=== PATIENT | male | born 2000 | race Caucasian/White ===

== ENCOUNTER 2023-12-30 12:45 | Emergency (ER) | payer BC, SELFPAY ==
[2023-12-30 13:15] VITALS: BP 123/84; PULSE 77; RESP 18; TEMP 36.6; O2SAT 99; BMI 31.9
--- NOTE | 2023-12-30 13:26 | EXP.UTC ---
Discharge Plan Disposition Patient Disposition: Home, Self-Care Condition: Good Prescriptions Prescriptions: New escitalopram oxalate 5 mg tablet 5 mg PO DAILY 30 Days Qty: 30 0RF No Action escitalopram oxalate [Lexapro] 5 mg Tablet 5 mg PO DAILY Referrals Follow up/Referrals: Provider,Referral, MD [Primary Care Provider] - See instructions Activity Restrictions/Add. Instructions Additional Instructions/Restrictions: You was given phone numbers to establish care Call the office and make appointment Return if needed Clinical Impressions Clinical Impression: Encounter for medication refill Instructions Patient Instructions: Escitalopram Print Language Print Language: [place] Discharge ED Provider: Dot Ruiz Trina [facility] HPI General Stated complaint: medicine refill Mode of Arrival: Ambulatory Source of Information: Patient Limitations: No Limitations Time Seen by Provider: 12/30/23 13:26 Description of Symptoms (Recalled from Triage Doc. by RN): PATIENT REQUESTING A REFILL FOR HIS LEXAPRO. HE STATES HE RECENTLY MOVED HERE AND HAS NOT YET ESTABLISHED CARE WITH PCP HEENT Symptoms (Recalled from RN notes): No Resp Symptoms (Recalled from RN notes): No Skin Symptoms (Recalled from RN notes): No MS Symptoms (Recalled from RN notes): No Functional Status (Recalled from RN notes): WNL History of Present Illness Provider Complaint: Patient states that he has not established care yet after moving here just a little while ago from [facility] he wanted to see if he could get a refill on his escitalopram until he can establish care somewhere Related Data Home Medications ?Medication ?Instructions ?Recorded ?Confirmed escitalopram oxalate 5 mg tablet 5 mg PO DAILY 12/30/23 12/30/23 (Lexapro) Previous Rx's ?Medication ?Instructions ?Recorded escitalopram oxalate 5 mg tablet 5 mg PO DAILY 30 days #30 tabs 12/30/23 Allergies Allergy/AdvReac Type Severity Reaction Status Date / Time No Known Allergies Allergy Verified 12/30/23 13:25 Worker's Comp Is this a Worker's Comp case?: No [facility] Disclaimer: The information contained in this section may have been updated after the patient was seen, as this information can be updated by other users. Medical History (Updated 12/30/23 @ 13:31 by Dot Ruiz APRN) Depression Anxiety Social History Smoking Status: Unknown if ever smoked alcohol intake: never current occupational status: employed Travel in the last 8 weeks: None ROS Obtained: Yes All systems reviewed & no additional complaints except as documented and Yes Systems reviewed as appropriate & no additional complaints except as documented Constitutional Constitutional: Reports system reviewed and no additional complaints, except as documented and Reports as per HPI ENT Ears, Nose, Mouth, and Throat: Reports system reviewed and no additional complaints, except as documented and Reports as per HPI Cardiovascular Cardiovascular: Reports system reviewed and no additional complaints, except as documented and Reports as per HPI Respiratory Respiratory: Reports system reviewed and no additional complaints, except as documented and Reports as per HPI Gastrointestinal Gastrointestingal: Reports system reviewed and no additional complaints, except as documented and as per HPI Genitourinary Male Genitourinary: Reports system reviewed and no additional complaints, except as documented and Reports as per HPI Physical Exam General General appearance: alert and in no apparent distress ENT ENT exam: Present mucous membranes moist Neck Neck exam: Present normal inspection, full ROM and trachea midline Chest Chest inspection: Present normal inspection and symmetric chest wall rise Respiratory Respiratory exam: Present normal lung sounds bilaterally; Absent respiratory distress or wheezes Cardiovascular Cardiovascular exam: Present regular rate, normal rhythm and normal heart sounds Neurological Exam Neurological exam: Present alert, oriented X3 and normal gait Medical Decision Making Medical Records Screening: Per USPSTF and CDC recommendations, given the prevalence of disease in our region, it is our hospital?s policy to screen for HIV and viral Hepatitis for all patients aged 18 and over and those with ongoing risk factors. Nathan Inquiry Pt receiving controlled substance: No Nathan was queried for this patient: No Vital Signs: 12/30/23 13:15 Temperature 97.8 F Temperature Source Oral Pulse Rate [Left Brachial] 77 Respiratory Rate 18 Blood Pressure [Left Arm] 170/100 H Blood Pressure Mean [Left Arm] 123 Blood Pressure Source [Left Arm] Automatic Cuff Blood Pressure Position [Left Arm] Sitting 02 Sat by Pulse Oximetry 99 Oxygen Delivery Method Room Air
[2023-12-30 13:30] VITALS: BP 123/84; PULSE 77; RESP 18; TEMP 36.6; O2SAT 99
== END 2023-12-30 13:35 | disposition home or self-care (01) ==
PROVIDERS: Emergency Provider Nurse Practitioner
DX: Z76.0 Encounter for issue of repeat prescription (principal)
CPT/HCPCS: 99213; G0381

== ENCOUNTER 2025-02-08 06:04 | Emergency (ER) | payer BC, SELFPAY ==
[2025-02-08] VITALS (14 sets, daily range): BP systolic 112–159; BP diastolic 61–100; PULSE 79–136; RESP 11–18; TEMP 36.8–37.1; O2SAT 91–98; BMI 34.2
--- NOTE | 2025-02-08 06:01 | ECG_ITS ---
APPROVED REPORT Exam: Resting ECG HR:149 bpm ECG Measurements Heart Rate 149 AXES HI 134 P 60 QRSd 85 QRS 38 QT 256 T 54 QTc 341 Conclusion SINUS TACHYCARDIA, POSSIBLE ATRIAL FLUTTER POSSIBLE RIGHT VENTRICULAR CONDUCTION DELAY [RSR (QR) IN V1/V2] ABNORMAL RHYTHM ECG Electronically signed by : SHARMILA BARRIGA, 02/08/2025 13:57:11
--- NOTE | 2025-02-08 06:03 | ED_ITS ---
Discharge Plan Disposition Patient Disposition: Home, Self-Care Prescriptions Prescriptions: No Action escitalopram oxalate 5 mg tablet 5 mg PO DAILY 30 Days Qty: 30 3RF Referrals Follow up/Referrals: Rashi Noonan DO [Primary Care Provider, Family Practice] - See instructions Activity Restrictions/Add. Instructions Additional Instructions/Restrictions: At this time it was felt you are safe to be discharged home. If new or worsening symptoms please do not hesitate to return the emergency department. Please refrain from substance abuse. Clinical Impressions Clinical Impression: Acute alteration in mental status, Acute substance intoxication Instructions Patient Instructions: Subjective Opioid Withdrawal Scale (SOWS) Print Language Print Language: Upper Sorbian Discharge ED Provider: Regan Caro General Adult HPI <Khris Medrano MD - Last Filed: 02/08/25 07:02> General Chief complaint: Overdose Stated complaint: OD Time Seen by Provider: 02/08/25 06:16 History of Present Illness HPI narrative: 24-year-old male without significant past medical history presents for THC overdose. History obtained from parents and EMS. Parents report that he had a couple of beers around 9 PM and they went to sleep. They awoke this morning to hear him puking in the bathroom. He was very altered and confused and not acting normally. No obvious signs of trauma. They did not witness him fall. EMS brought an empty 400 mg packet of delta 9 THC. Unclear how much of the packet he took, possibly the whole thing though it is unclear. Related Data Previous Rx's ?Medication ?Instructions ?Recorded escitalopram oxalate 5 mg tablet 5 mg PO DAILY 30 days #30 tabs 11/20/24 Allergies Allergy/AdvReac Type Severity Reaction Status Date / Time No Known Allergies Allergy Verified 11/20/24 08:34 PFS <Khris Medrano MD - Last Filed: 02/08/25 07:02> [facility] Disclaimer: The information contained in this section may have been updated after the patient was seen, as this information can be updated by other users. Medical History Bone spur right knee Depression Anxiety Surgical History [place] teeth extracted H/O right knee surgery bone spur removal Social History Smoking Status: Unknown if ever smoked alcohol intake: current alcohol intake frequency: a few times a week substance use type: denies use current occupational status: employed Travel in the last 8 weeks?: None <Khris Medrano MD - Last Filed: 02/08/25 07:02> ROS Obtained: Yes All systems reviewed & no additional complaints except as documented Physical Exam <Khris Medrano MD - Last Filed: 02/08/25 07:02> General General appearance: appears intoxicated Head Head exam: atraumatic and normocephalic Eye Eye exam: Present normal appearance, PERRL and EOMI ENT ENT exam: Present normal oropharynx and normal external ear exam Neck Neck exam: Present normal inspection and full ROM Chest Chest inspection: Present normal inspection and symmetric chest wall rise; Absent tenderness Respiratory Respiratory exam: Present normal lung sounds bilaterally; Absent respiratory distress Cardiovascular Cardiovascular exam: Present normal rhythm and tachycardia Abdominal Exam Abdominal exam: Present soft; Absent distention, tenderness or guarding Extremities Exam Extremities exam: Present normal inspection; Absent edema or joint swelling Back Exam Back exam: Present normal inspection; Absent tenderness Neurological Exam Neurological exam: Present other (Pupils dilated. GCS 11. Will answer some questions but is confused. Localizes in all extremities) Psychiatric Psychiatric exam: Present normal affect and normal mood Skin Skin exam: Present warm, dry and normal color Lymphatic Lymphatic Findings: no adenopathy Medical Decision Making <Khris Medrano MD - Last Filed: 02/08/25 07:02> Medical Records Medical records reviewed: Yes I reviewed the patient's medical records. Screening: Per USPSTF and CDC recommendations, given the prevalence of disease in our region, it is our hospital?s policy to screen for HIV and viral Hepatitis for all patients aged 18 and over and those with ongoing risk factors. Nathan Inquiry Pt receiving controlled substance: No Nathan was queried for this patient: No Vital Signs: 02/08/25 06:02 02/08/25 06:12 02/08/25 06:31 Temperature 98.7 F 98.2 F Temperature Source Oral Oral Pulse Rate 136 H 134 H Pulse Rate [Left] 133 H Respiratory Rate 18 12 Blood Pressure 159/78 H 156/96 H Blood Pressure [Right Arm] 157/100 H Blood Pressure Mean 116 Blood Pressure Mean [Right Arm] 119 Blood Pressure Source [Right Arm] Automatic Cuff Blood Pressure Position [Right Arm] Sitting 02 Sat by Pulse Oximetry 96 98 95 Oxygen Delivery Method Room Air Room Air 02/08/25 07:01 02/08/25 07:51 02/08/25 08:00 Temperature Temperature Source Pulse Rate 129 H 113 H 113 H Pulse Rate [Left] Respiratory Rate 17 17 Blood Pressure 146/79 H 142/79 H 128/69 Blood Pressure [Right Arm] Blood Pressure Mean Blood Pressure Mean [Right Arm] Blood Pressure Source [Right Arm] Blood Pressure Position [Right Arm] 02 Sat by Pulse Oximetry 91 L 95 94 L Oxygen Delivery Method Room Air Room Air Room Air 02/08/25 08:15 02/08/25 08:30 02/08/25 09:00 Temperature Temperature Source Pulse Rate 107 H 104 H 100 H Pulse Rate [Left] Respiratory Rate 14 15 17 Blood Pressure 135/64 135/75 Blood Pressure [Right Arm] Blood Pressure Mean Blood Pressure Mean [Right Arm] Blood Pressure Source [Right Arm] Blood Pressure Position [Right Arm] 02 Sat by Pulse Oximetry 94 L 95 97 Oxygen Delivery Method Room Air Room Air Room Air 02/08/25 09:30 Temperature Temperature Source Pulse Rate 94 H Pulse Rate [Left] Respiratory Rate 13 Blood Pressure 121/64 Blood Pressure [Right Arm] Blood Pressure Mean Blood Pressure Mean [Right Arm] Blood Pressure Source [Right Arm] Blood Pressure Position [Right Arm] 02 Sat by Pulse Oximetry 95 Oxygen Delivery Method Room Air Lab Data Lab results reviewed: Yes I reviewed the patient's lab results. Lab Results 02/08/25 05:55: WBC 9.3, RBC 5.26, Hgb 17.2, Hct 48.6, MCV 92.4, MCH 32.7 H, MCHC 35.4, RDW 12.4, Plt Count 469 H, MPV 10.0, Neut % (Auto) 65.5, Lymph % (Auto) 25.2, Cassia % (Auto) 8.1, Eos % (Auto) 0.6, Baso % (Auto) 0.4, Neut # (Auto) 6.1, Lymph # (Auto) 2.3, Cassia # (Auto) 0.8, Eos # (Auto) 0.1, Baso # (Auto) 0.0, Sodium 139, Potassium 4.6, Chloride 101, Carbon Dioxide 23, Anion Gap 19.6 H, BUN 18, Creatinine 1.40 H, Estimated Creat Clear 115, Estimated GFR 61, Est GFR ( Amer) 74, Glucose 181 H, Calcium 9.3, Total Bilirubin 0.5, AST 43, ALT 65, Alkaline Phosphatase 60, Total Protein 8.6 H, Albumin 5.2 H, G lobulin 3.4 H, Albumin/Globulin Ratio 1.5, Salicylates < 1.0 L, Acetaminophen < 10 L, HCV Ab DA w/Rflx PCR Qn Negative 02/08/25 05:55 02/08/25 05:55 Orders (Tests/Meds): ED MEDICATIONS Discontinued Medications Generic Name Dose Route Start Last Admin Trade Name Freq PRN Reason Stop Dose Admin Sodium Chloride 1,000 mls @ 999 mls/hr 02/08/25 06:00 02/08/25 09:01 Sod Chlor 0.9% 1000ml Bag IV 02/08/25 07:00 Infused .Q1H1M ELO Infusion ORDERS Category Date Time Status CT head/brain wo con Stat Cat Scan 02/08/25 07:21 Completed CXR --portable [XR chest portable] Stat Exams 02/08/25 06:08 Completed Acetaminophen Stat Lab 02/08/25 05:55 Completed CBC w/Auto Diff [Complete Blood Count Auto Diff] Stat Lab 02/08/25 05:55 Completed CMP [Comprehensive Metabolic Panel] Stat Lab 02/08/25 05:55 Completed HIV Combo Stat Lab 02/08/25 05:55 Received Hepatitis C Ab Qual. W/ RFX Stat Lab 02/08/25 05:55 Completed Salicylate Stat Lab 02/08/25 05:55 Completed Medical Decision Narrative: 24-year-old male without significant past medical history presents for intoxication, likely THC overdose. History was obtained via interactive discussion with EMS, chart review, family. On arrival, patient is afebrile, tachycardic but hemodynamically stable, altered with GCS 11, moving all extremities spontaneously. Full physical exam performed and significant for no obvious signs of trauma Differential includes but is not limited to alcohol intoxication, THC intoxication, opiate intoxication,. Patient was given 1 L IV fluid bolus for symptomatic management and correction of underlying abnormalities. Workup initiated including basic labs, chest x-ray. On re-evaluation, patient remains altered, heart rate improving with fluids Laboratory workup independently interpreted by me and significant for creatinine 1.4, unknown baseline, negative Tylenol and salicylate. Imaging independently interpreted by me and significant for clear lungs, no evidence of aspiration. See radiology read for full review of final results. Patient was placed in ED outpatient status for continued monitoring. At this time care handed off to oncoming physician. <Regan Caro MD - Last Filed: 02/08/25 12:08> Vital Signs: 02/08/25 06:02 02/08/25 06:12 02/08/25 06:31 Temperature 98.7 F 98.2 F Temperature Source Oral Oral Pulse Rate 136 H 134 H Pulse Rate [Left] 133 H Respiratory Rate 18 12 Blood Pressure 159/78 H 156/96 H Blood Pressure [Right Arm] 157/100 H Blood Pressure Mean 116 Blood Pressure Mean [Right Arm] 119 Blood Pressure Source [Right Arm] Automatic Cuff Blood Pressure Position [Right Arm] Sitting 02 Sat by Pulse Oximetry 96 98 95 Oxygen Delivery Method Room Air Room Air 02/08/25 07:01 02/08/25 07:51 02/08/25 08:00 Temperature Temperature Source Pulse Rate 129 H 113 H 113 H Pulse Rate [Left] Respiratory Rate 17 17 Blood Pressure 146/79 H 142/79 H 128/69 Blood Pressure [Right Arm] Blood Pressure Mean Blood Pressure Mean [Right Arm] Blood Pressure Source [Right Arm] Blood Pressure Position [Right Arm] 02 Sat by Pulse Oximetry 91 L 95 94 L Oxygen Delivery Method Room Air Room Air Room Air 02/08/25 08:15 02/08/25 08:30 02/08/25 09:00 Temperature Temperature Source Pulse Rate 107 H 104 H 100 H Pulse Rate [Left] Respiratory Rate 14 15 17 Blood Pressure 135/64 135/75 Blood Pressure [Right Arm] Blood Pressure Mean Blood Pressure Mean [Right Arm] Blood Pressure Source [Right Arm] Blood Pressure Position [Right Arm] 02 Sat by Pulse Oximetry 94 L 95 97 Oxygen Delivery Method Room Air Room Air Room Air 02/08/25 09:30 Temperature Temperature Source Pulse Rate 94 H Pulse Rate [Left] Respiratory Rate 13 Blood Pressure 121/64 Blood Pressure [Right Arm] Blood Pressure Mean Blood Pressure Mean [Right Arm] Blood Pressure Source [Right Arm] Blood Pressure Position [Right Arm] 02 Sat by Pulse Oximetry 95 Oxygen Delivery Method Room Air Lab Data Lab Results 02/08/25 05:55: WBC 9.3, RBC 5.26, Hgb 17.2, Hct 48.6, MCV 92.4, MCH 32.7 H, MCHC 35.4, RDW 12.4, Plt Count 469 H, MPV 10.0, Neut % (Auto) 65.5, Lymph % (Auto) 25.2, Cassia % (Auto) 8.1, Eos % (Auto) 0.6, Baso % (Auto) 0.4, Neut # (Auto) 6.1, Lymph # (Auto) 2.3, Cassia # (Auto) 0.8, Eos # (Auto) 0.1, Baso # (Auto) 0.0, Sodium 139, Potassium 4.6, Chloride 101, Carbon Dioxide 23, Anion Gap 19.6 H, BUN 18, Creatinine 1.40 H, Estimated Creat Clear 115, Estimated GFR 61, Est GFR ( Amer) 74, Glucose 181 H, Calcium 9.3, Total Bilirubin 0.5, AST 43, ALT 65, Alkaline Phosphatase 60, Total Protein 8.6 H, Albumin 5.2 H, G lobulin 3.4 H, Albumin/Globulin Ratio 1.5, Salicylates < 1.0 L, Acetaminophen < 10 L, HCV Ab DA w/Rflx PCR Qn Negative Orders (Tests/Meds): ED MEDICATIONS Discontinued Medications Generic Name Dose Route Start Last Admin Trade Name Freq PRN Reason Stop Dose Admin Sodium Chloride 1,000 mls @ 999 mls/hr 02/08/25 06:00 02/08/25 09:01 Sod Chlor 0.9% 1000ml Bag IV 02/08/25 07:00 Infused .Q1H1M ELO Infusion ORDERS Category Date Time Status CT head/brain wo con Stat Cat Scan 02/08/25 07:21 Completed CXR --portable [XR chest portable] Stat Exams 02/08/25 06:08 Completed Acetaminophen Stat Lab 02/08/25 05:55 Completed CBC w/Auto Diff [Complete Blood Count Auto Diff] Stat Lab 02/08/25 05:55 Completed CMP [Comprehensive Metabolic Panel] Stat Lab 02/08/25 05:55 Completed HIV Combo Stat Lab 02/08/25 05:55 Received Hepatitis C Ab Qual. W/ RFX Stat Lab 02/08/25 05:55 Completed Salicylate Stat Lab 02/08/25 05:55 Completed Medical Decision Narrative: 24-year-old male without significant past medical history presents for intoxication, likely THC overdose. History was obtained via interactive discussion with EMS, chart review, family. On arrival, patient is afebrile, tachycardic but hemodynamically stable, altered with GCS 11, moving all extremities spontaneously. Full physical exam performed and significant for no obvious signs of trauma Differential includes but is not limited to alcohol intoxication, THC intoxication, opiate intoxication,. Patient was given 1 L IV fluid bolus for symptomatic management and correction of underlying abnormalities. Workup initiated including basic labs, chest x-ray. On re-evaluation, patient remains altered, heart rate improving with fluids Laboratory workup independently interpreted by me and significant for creatinine 1.4, unknown baseline, negative Tylenol and salicylate. Imaging independently interpreted by me and significant for clear lungs, no evidence of aspiration. See radiology read for full review of final results. Patient was placed in ED outpatient status for continued monitoring. At this time care handed off to oncoming physician. Regan Caro: Upon assumption of care patient was hemodynamically stable, decreased GCS, clinically intoxicated, roving eye movements able to answer 1-2 word sentences. When asked if he took the entire package he states yes. This is 400 mg of THC for which I suspect prolonged intoxication. Given that he was found down in his bathroom and has roving eye movements although he does not have external trauma given the duration of observation CT imaging is warranted. Noncontrasted CT scan head ordered and informally interpreted by me no acute large injectable hemorrhage or midline shift. The patient was placed in observation status at 7:30 AM. Medical necessity for observational status is serial evaluations in the setting of clinical intoxication. 9:30 AM: Patient was reassessed and is arousable to voice, is coherent and knows that he is in the hospital. He is still drowsy. I considered admission but at this point given his clinical improvement we will continue to watch for a couple of hours to see if it is necessary. 10:30 AM: Patient is resting comfortably in bed coherent and conversational although very tired. Tolerating p.o. at bedside. Heart rate downtrending as I would expect as the Sativa metabolizes. 12 PM: Parents at bedside, patient is conversational, ambulatory with some assistance, tolerating p.o. Patient has no ongoing medical emergency and is appropriate to continue to metabolize at home and parents are comfortable with this. Patient was given return precautions. Because of this I feel patient can be discharged with outpatient observation at this time. Total time in observation 4 hours and 36 minutes. Procedures <Khris Medrano MD - Last Filed: 02/08/25 07:02> Risk/Benefits of Procedure(s) Were Explained: Yes Critical Care <Khris Medrano MD - Last Filed: 02/08/25 07:02> Critical Care Time Critical Care Time: No
--- NOTE | 2025-02-08 06:08 | XR_ITS ---
PROCEDURE INFORMATION: Exam: XR Chest Exam date and time: 02/08/2025 6:12 AM Age: 24 years old Clinical indication: Other: Possible aspiration; Additional info: Intoxication, possible aspiration TECHNIQUE: Imaging protocol: Radiologic exam of the chest. Views: 1 view. COMPARISON: No relevant prior studies available. FINDINGS: Lungs: Low lung volumes. Patchy bibasilar ground-glass airspace opacities, left greater than right. Pleural spaces: No significant pleural effusions. No pneumothorax. Heart/Mediastinum: Unremarkable. No cardiomegaly. Bones/joints: Unremarkable. IMPRESSION: Hypoventilatory change with patchy bibasilar ground-glass infiltrates, left greater than right, consistent with aspiration pneumonitis.
[2025-02-08 06:09] LABS: Hematocrit 48.6 % (42.0-52.0); Hemoglobin 17.2 g/dL (14.1-18.0); Immature Granulocytes % 0.2 %; Mean Corpuscular HGB Conc 35.4 g/dL (31.8-35.4); Mean Corpuscular Hemoglobin 32.7 pg (27.0-31.2); Mean Corpuscular Volume 92.4 fl (80-94); Nucleated Red Blood Cells % 0 %; Platelet Count 469 K/mm3 (142-424); Red Blood Count 5.26 M/mm3 (4.60-6.20); Red Cell Distribution Width-SD 42.8 fL; White Blood Count 9.3 K/mm3 (4.8-10.8)
[2025-02-08 06:12] LABS: Albumin Level 5.2 g/dl (3.5-5.0); Chloride 101 mmol/L (98-107)
[2025-02-08 06:13] LABS: Potassium 4.6 mmoL/L (3.5-5.1); Sodium 139 mmol/L (136-145)
[2025-02-08 06:15] LABS: Alanine Aminotransferase 65 U/L (12-78); Albumin/Globulin Ratio 1.5 (1.1-1.8); Anion Gap 19.6 mEq/L (5-15); Aspartate Amino Transferase 43 U/L (17-59); Blood Urea Nitrogen 18 mg/dl (9-20); Carbon Dioxide 23 mmol/L (22.0-30.0); Creatinine Clearance Estimated 115 mL/min (50-200); Creatinine,Serum 1.40 mg/dl (0.66-1.25); Estimated Glomerular Filt Rate 61 ml/min (>60); GFR (African American) 74 ML/MIN (>60); Globulin 3.4 g/dL (1.3-3.2); Total Protein,Serum 8.6 g/dl (6.3-8.2)
[2025-02-08 06:16] LABS: Alkaline Phosphatase 60 U/L (38-126); Bilirubin,Total 0.5 mg/dl (0.2-1.3); Calcium 9.3 mg/dl (8.4-10.2); Glucose 181 mg/dl (74-100); Salicylate < 1.0 mg/dL (2.0-20.0)
[2025-02-08 06:17] LABS: Acetaminophen < 10 ug/ml (10-30)
--- OUTSIDE RECORDS SUMMARY | 2025-02-08 06:35 | XMS_ITS ---
Author Organization Unknown ENCOUNTERS Encounter Performer Location Date Diagnosis Diagnosis Status Emergency [facility] [address] [place] [address] [id number] Pre Admit [facility] [address] [place] [address] [id number] Emergency [facility] [address] [place] [address] [id number] KRYSTA Pre Admit [facility] [address] [place] [address] [id number] *Note: Encounters from your own facility or health system may be excluded. Allergies, Adverse Reactions, Alerts Allergen Type Severity Identification Date Medications Name Date Quantity Days Supplied GPI Number
[2025-02-08] MEDS: 0.9 % SODIUM CHLORIDE 1000ML 1,000 ML 999 ML IV (06:40)
--- NOTE | 2025-02-08 07:21 | CT_ITS ---
PROCEDURE INFORMATION: Exam: CT Head Without Contrast Exam date and time: 02/08/2025 7:33 AM Age: 24 years old Clinical indication: Altered mental status/memory loss; Additional info: Thc encephalopathy found in bathroom TECHNIQUE: Imaging protocol: Computed tomography of the head without contrast. Radiation optimization: All CT scans at this facility use at least one of these dose optimization techniques: automated exposure control; mA and/or kV adjustment per patient size (includes targeted exams where dose is matched to clinical indication); or iterative reconstruction. COMPARISON: No relevant prior studies available. FINDINGS: Limitations: Artifact image degradation. Brain: No acute intracranial hemorrhage. No evidence of acute large vessel infarct. No mass effect or midline shift. Mata-white differentiation preserved. Cerebral ventricles: No vertriculomegaly. Paranasal sinuses: Mild mucosal thickening of the right maxillary sinus. Few small retention cysts/mucosal thickening of the left maxillary sinus. Included paranasal sinuses are otherwise clear. No fluid levels. Mastoid air cells: Included mastoid air cells are clear. Orbital cavities: Visualized orbits are unremarkable. Bones: Unremarkable. No acute fracture. Soft tissues: Unremarkable. IMPRESSION: No CT evidence of acute intracranial abnormality.
[2025-02-08 11:49] LABS: Hepatitis C Ab Qual. W/ RFX NEGATIVE (Negative)
== END 2025-02-08 12:12 | disposition home or self-care (01) ==
PROVIDERS: Emergency Medicine; Emergency Provider Emergency Medicine; PCP Internal Medicine
DX: T40.711A Poisoning by cannabis, accidental (unintentional), initial encounter (principal); R00.0 Tachycardia, unspecified; X58.XXXA Exposure to other specified factors, initial encounter; F32.A Depression, unspecified
CPT/HCPCS: 70450; 71045; 80053; 80329; 85025; 86803; 87389; 93005; 96360; 99285; J7030